=== PATIENT | male | born 1975 | race Hispanic/Latino ===

== ENCOUNTER 2022-04-03 22:42 | Emergency (ER) | payer SELFPAY ==
[2022-04-03] MEDS ORDERED: AMOX/K CLAV875 M1 PO (23:14)
[2022-04-03 23:32] VITALS: BP 123/74
== END 2022-04-03 23:47 | disposition home or self-care (01) | DRG 153 ==
LOC: ED 22:42
DX: H66.93 Otitis media, unspecified, bilateral (principal); J06.9 Acute upper respiratory infection, unspecified